=== PATIENT | male | born 1990 | race Caucasian/White ===

== ENCOUNTER 2021-07-17 14:49 | Emergency (ER) | payer OTHER ==
[2021-07-17 15:24] VITALS: BP 130/82; PULSE 88; TEMP 98.2; BMI 26.6
[2021-07-17] MEDS ORDERED: KETOROLAC TROMETHAMINE 30 MG/1 ML VIAL IM ONE (16:02)
[2021-07-17] MEDS ORDERED: METHOCARBAMOL 500 MG TABLET PO ONE (16:02)
== END 2021-07-17 18:49 | disposition home or self-care (01) ==
LOC: JERFT 14:49
PROC: 3E0233Z Introduction of Anti-inflammatory into Muscle, Percutaneous Approach (ICD-10-PCS; principal; 2021-07-17)
DX: M54.42 Lumbago with sciatica, left side (principal); V49.50XA Passenger injured in collision with unspecified motor vehicles in traffic accident, initial encounter
CPT/HCPCS: 72131-TC; 99284-25